=== PATIENT | male | born 1965 | race Caucasian/White ===

== ENCOUNTER → 2016-07-14 | Outpatient (CLI) | payer BC ==
--- NOTE | 2016-07-14 12:51 | RAD ---
Abdominal ultrasound, 07/14/2016: History: Abnormal liver function test There are prominent echoes in the gallbladder fossa region with posterior acoustic shadowing. The findings are compatible with calculi with the shadowing obscuring the posterior gallbladder wall. The anterior wall does not appear to be thickened. No bile duct dilatation is seen. The liver demonstrates increased echogenicity in a diffuse pattern compatible with fatty change. It measures 17 cm in craniocaudad length at the level of the right lobe. No hepatic mass is seen. The pancreas was obscured by overlying bowel. The spleen is of normal size. No renal abnormality is detected. The abdominal aorta is not dilated. The visualized portions of the inferior vena cava are unremarkable. No free fluid is evident in the abdomen. IMPRESSION: 1. Cholelithiasis. 2. Mild hepatomegaly with increased hepatic echogenicity compatible with hepatic steatosis.
== END | disposition home or self-care (01) ==
LOC: US 08:53
PROVIDERS: ATTEND Family Medicine
DX: K80.20 Calculus of gallbladder without cholecystitis without obstruction (principal); K76.0 Fatty (change of) liver, not elsewhere classified; R16.0 Hepatomegaly, not elsewhere classified; R94.5 Abnormal results of liver function studies
CPT/HCPCS: 76700